=== PATIENT | male | born 1985 | race African-American/Black ===

== ENCOUNTER 2018-06-06 05:12 | Emergency (ER) | payer SELFPAY ==
[~2018-06-06] VITALS: Ht 180.3 cm; Wt 131.0 kg
[2018-06-06] MEDS ORDERED: AZITHROMYCIN 500 MG TABLET PO ONE (09:00)
[2018-06-06] MEDS ORDERED: CEFTRIAXONE SODIUM 250 MG/VIAL IM ONE (09:00)
[2018-06-06] MEDS ORDERED: LIDOCAINE HCL 1% 20ML VIAL (Pyxis) INJ INFIL ONE (09:00)
[2018-06-06 09:21] LABS: CLARITY URINE CLEAR (CLEAR); COLOR URINE DARK YELLOW (YELLOW); KETONES URINE TRACE (NEGATIVE); LEUKOCYTE ESTERASE URINE TRACE (NEGATIVE); NITRITE URINE NEGATIVE (NEGATIVE); OCCULT BLOOD URINE NEGATIVE (NEGATIVE); PROTEIN URINE NEGATIVE (NEGATIVE); SPECIFIC GRAVITY URINE 1.038 (1.005-1.030)
[2018-06-06 09:28] VITALS: BP 148/94
== END 2018-06-06 09:29 | disposition home or self-care (01) ==
LOC: ER 05:12
DX: N34.2 Other urethritis (principal)
CPT/HCPCS: 81003; 96372; 99283; J0696; J3490; Z7610